=== PATIENT | female | born 1995 | race Caucasian/White ===

== ENCOUNTER 2018-07-15 06:54 | Inpatient (IN) ==
[2018-07-15] MEDS ORDERED: DEXTROSE 5%-LACTATED RINGERS 1,000 ML IV PRN ×2 (07:42→07:49)
[2018-07-15] MEDS ORDERED: OXYTOCIN/DEXTROSE 5%-WATER 30 UNITS/500 ML BAG IV ONE ×3 (07:42→09:13)
[2018-07-15] MEDS ORDERED: LIDOCAINE HCL 50 ML VIAL PERI PRN ×2 (07:42→07:49)
[2018-07-15] MEDS ORDERED: LIDOCAINE HCL 50 ML VIAL ONE (07:48)
[2018-07-15] MEDS ORDERED: SENNOSIDES 8.6 MG TABLET PO PRN (09:13)
[2018-07-15] MEDS ORDERED: BENZOCAINE/MENTHOL 81 SPRAY CAN TP PRN (09:13)
[2018-07-15] MEDS ORDERED: HYDROCORTISONE 30 APPL TUBE TP PRN (09:13)
[2018-07-15] MEDS ORDERED: oxyCODONE HCL/ACETAMINOPHEN 1 TAB TABLET PO PRN ×2 (09:13)
[2018-07-15] MEDS ORDERED: GLYCERIN/WITCH HAZEL LEAF 40 APPL BOX TP PRN (09:13)
[2018-07-15] MEDS ORDERED: BISACODYL 10 MG SUPP.RECT RC PRN (09:13)
--- NOTE | 2018-07-15 09:29 | OR ---
Operative Report - Dictated Report Narrative: Spontaneous vaginal delivery of viable female at 0834 on 07/15/2018 with Apgars 9 and 9, weighing 3360 g in GALINA position. Cord clamping delayed approximately 1 minute Placenta delivered complete, intact, with three vessel cord Estimated blood loss: less than 50 ml Anesthesia: 1% lidocaine for laceration repair Lacerations: First-degree vaginal laceration (4 cm) repaired with 3-0 Vicryl Rapide History for MU Definition: * The number of deliveries resulting in a live the patient experienced prior to current hospitalization * The previous delivery of live twins or any live multiple gestation is considered one live event. *If primagravida or nulliparous is documented select zero for the number of previous live births. Live Events: 2
--- NOTE | 2018-07-15 09:44 | HP ---
Chief Complaint - Chief Complaint Date of Service: 07/15/18 Time of Service: 09:35 Chief Complaint: contractions History of Present Illness: 23 yo at 39 2/7 weeks presents to L&D complaining of contractions since about 0200 awakening her from sleep. This complicated by anxiety/depression (no meds), anemia, and thrombocytopenia (resolved 05/01/18). Rh positive Rubella immune GBS negative Medical History (Last Reviewed 07/15/18 @ 09:40 by Kraig Rouse DO) Anemia Body piercing Pea allergy Tattoos Thrombocytopenia Onset Date: 12/12/17 Tomato allergy Allergic rhinitis Onset Date: Unknown Anxiety Onset Date: ~11/2016 Depression Sinusitis Onset Date: Unknown UTI (urinary tract infection) Onset Date: Unknown , spontaneous Onset Date: ~07/2017 Bronchitis Onset Date: Unknown Bursitis Onset Date: Unknown Otitis media Onset Date: Unknown Scabies Onset Date: Unknown Upper respiratory infection Onset Date: Unknown Vulvovaginitis Onset Date: Unknown Surgical History: Surgical History (Last Reviewed 07/15/18 @ 09:40 by Kraig Rouse DO) H/O nasal septoplasty Onset Date: ~2008 History of adenoidectomy Onset Date: ~2008 History of dacryocystorhinostomy Onset Date: ~2008 History of tonsillectomy Onset Date: ~2008 perineoplasty Onset Date: 09/16/15 Family History: Family History (Last Reviewed 07/15/18 @ 09:40 by Kraig Rouse DO) Father Rheumatoid arthritis Grandfather CVA (cerebral vascular accident) Kidney failure Grandfather Rheumatoid arthritis Heart disease Hypertension Diabetes Grandmother Rheumatoid arthritis Heart disease Hypertension Diabetes Mother Asthma Hypercholesterolemia Sister Congenital ectodermal dysplasia ADHD Uncle CVA (cerebral vascular accident) Heart disease Myocardial infarction Social History: Preferred Language Romanian Abuse History No History of abuse Psych History No pertinent hx Review Of Systems (GEN) - Review of Systems Generalized/Overall Review: Present: No Symptoms Reported EENTM: Present: No Symptoms Reported Respiratory: Present: No Symptoms Reported Cardiac: Present: No Symptoms Reported Abdominal: Present: No Symptoms Reported Genitourinary: Present: Other - contractions since 0200, worse around 0500. Musculoskeletal: Present: No Symptoms Reported Neurological: Present: No Symptoms Reported Skin: Present: No Symptoms Reported Endocrine: Present: No Symptoms Reported Allergies/Adverse Reactions: Allergies Allergy/AdvReac Type Severity Reaction Status Date / Time johnny Allergy Verified 07/15/18 07:41 Home Medications: HOME MEDICATIONS ferrous sulfate 325 mg (65 mg iron) tablet 325 mg PO DAILY tab 05/14/18 [Last Taken Unknown] vitamin,calcium,ayviwqmq-oeqn-[id number] acid tablet 1 tab PO DAILY [Last Taken Unknown] Exam - Exam Vital Signs: Vital Signs - Last Taken Temp 36.7 C 07/15/18 08:21 Pulse 92 07/15/18 08:21 Resp 18 07/15/18 08:21 BP 118/81 07/15/18 08:21 Pulse Ox 100 07/15/18 08:21 Constitutional: Present: Alert, Oriented x3, Cooperative, Mild distress ENT Exam: Present: hearing grossly normal Respiratory: Present: lungs clear, no respiratory distress Cardiovascular/Chest: Present: regular rate, rhythm, no edema Abdomen: Present: soft, nontender, no rebound tenderness, other - gravid /Rectal: Present: Other - 7-8/100/-2 Extremity: Present: no pedal edema, no calf tenderness Skin Exam: Present: normal color, warm/dry, no cyanosis Lymphatic: Present: no adenopathy Neurologic: Present: normal mood/affect, oriented x 3 Appearance: Present: appropriate appearance, appropriate insight Eye contact: Present: cooperative, good eye contact, normal speech Thoughts: Present: normal thought pattern Assessment/Plan - Assessment/Plan (1) Labor established Assessment: Admit for routine labor management. Problem: Acute
[2018-07-15] MEDS: IBUPROFEN 800 MG TABLET PO PRN ×2 (10:19→16:55)
[2018-07-15] MEDS: PRENATAL VITS96/IRON FUM/FOLIC 1 TAB TABLET PO SCH ×2 (19:20→22:08)
[2018-07-15] MEDS: FERROUS SULFATE 325 MG TABLET PO SCH ×2 (19:20→22:08)
[2018-07-15] MEDS: DOCUSATE SODIUM 100 MG CAPSULE PO SCH (22:08)
[2018-07-16] MEDS: DOCUSATE SODIUM 100 MG CAPSULE PO SCH ×2 (09:27→20:15)
--- NOTE | 2018-07-16 10:09 | PN ---
Subjective - Date and Time Seen Date: 07/16/18 Time: 10:09 Objective - Vitals Vitals: Last Vital Signs Temp 35.6 C L 07/16/18 08:11 Pulse 71 07/16/18 08:11 Resp 16 07/16/18 08:11 BP 107/69 07/16/18 08:11 Pulse Ox 99 07/16/18 08:11 Patient denies complaints. Lochia wnl Abdomen - soft, nontender Uterus - firm, at umbilicus - 1 No calf tenderness Impression: day #1 - s/p spontaneous vaginal delivery. Plan: Continue routine care Assessment/Plan - Problems/Diagnosis (1) Labor established Problem: Acute
[2018-07-16] MEDS: IBUPROFEN 800 MG TABLET PO PRN ×2 (15:52→21:53)
[2018-07-16] MEDS: PRENATAL VITS96/IRON FUM/FOLIC 1 TAB TABLET PO SCH (20:14)
[2018-07-16] MEDS: FERROUS SULFATE 325 MG TABLET PO SCH (20:15)
--- NOTE | 2018-07-17 04:45 | PN ---
Subjective - Date and Time Seen Date: 07/17/18 Time: 04:44 Objective - Vitals Vitals: Last Vital Signs Temp 36.1 C 07/16/18 20:25 Pulse 75 07/16/18 20:25 Resp 16 07/16/18 20:25 BP 116/65 07/16/18 20:25 Pulse Ox 99 07/16/18 20:25 Patient denies complaints. Breast-feeding/pumping Lochia wnl Abdomen - soft, nontender Uterus - firm, at umbilicus - 2 No calf tenderness Impression: day #2 - s/p spontaneous vaginal delivery. Baby staying for IV antibiotics due to elevated CRP Plan: Routine discharge instructions. Board for baby. Assessment/Plan - Problems/Diagnosis (1) Labor established Problem: Acute
[2018-07-17] MEDS: DOCUSATE SODIUM 100 MG CAPSULE PO SCH ×2 (07:47→08:42)
[2018-07-17] MEDS: IBUPROFEN 800 MG TABLET PO PRN (07:47)
[2018-07-17] MEDS: PRENATAL VITS96/IRON FUM/FOLIC 1 TAB TABLET PO SCH (08:43)
[2018-07-17] MEDS: FERROUS SULFATE 325 MG TABLET PO SCH (08:43)
[2018-07-17 20:11] VITALS: BP 115/69
== END 2018-07-17 22:15 | disposition home or self-care (01) | DRG 775 ==
LOC: OBCLINIC 06:54 → OB 07:11
PROVIDERS: ADMIT Obstetrics & Gynecology; ATTEND Obstetrics & Gynecology
CPT/HCPCS: 59025